=== PATIENT | male | born 1950 | race Caucasian/White ===

== ENCOUNTER 2016-09-23 10:09 | Day surgery (SDC) | payer BC ==
[~2016-09-23 10:09] MED LIST: Acetaminophen TAB* 325 MG PO PRN; Buffered Lidocaine 0.9% SYRIN* 5 ML/SYR SYRINGE INTRADERM ONE
[2016-09-23] MEDS ORDERED: fentaNYL* 50 MCG/ML 2 ML VIAL (100 MCG VIAL) ONE (10:28)
[2016-09-23] MEDS ORDERED: Midazolam* 1 MG/ML 2 ML VIAL (2 MG) ONE ×2 (10:28→11:01)
[2016-09-23 11:43] VITALS: BP 119/82
[2016-09-23] MEDS ORDERED: Cyclopentolate 1% OPTH.SOL* 2 ML BTL ONE (14:23)
[2016-09-23] MEDS ORDERED: Flurbiprofen 0.03% OPTH.SOL* 2.5 ML BTL ONE (14:23)
[2016-09-23] MEDS ORDERED: Lidocaine 1% MPF* 2 ML VIAL ONE (14:24)
[2016-09-23] MEDS ORDERED: Neomycin/Polymy/Dex OPHTH.OIN* 3.5 GM ONE (14:24)
[2016-09-23] MEDS ORDERED: Buffered Lidocaine 0.9% SYRIN* 5 ML/SYR SYRINGE ONE (14:24)
[2016-09-23] MEDS ORDERED: Tropicamide 1% OPTH.SOL* BTL ONE (14:24)
[2016-09-23] MEDS ORDERED: Tetracaine 0.5% OPTH.SOL 4 ML* 1 DROP BTL ONE (14:24)
[2016-09-23] MEDS ORDERED: Phenylephrine 2.5% OPTH.SOL* 2 ML BTL ONE (14:24)
--- NOTE | 2016-09-24 00:45 | OP ---
DATE OF OPERATION: 09/23/16 [facility] DATE OF : 48 SURGEON: Dr. Adalberto Clark. 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 ANESTHESIOLOGIST: Galdino Anthony MD ANESTHESIA: Topical with intravenous sedation. PRE-OP DIAGNOSIS: Cataract, right eye. POST-OP DIAGNOSIS: Cataract, right eye. OPERATIVE PROCEDURE: Phacoemulsification and cataract extraction with posterior chamber intraocular lens implant, right eye. COMPLICATIONS: None. BLOOD LOSS: None. DESCRIPTION OF PROCEDURE: The patient was brought to the operating room and received a small amount of intravenous sedation. A drop of Tetracaine was placed in his right eye. He was prepped and draped in the usual sterile fashion for ophthalmic surgery and attention was directed to the right eye where a speculum was placed. A paracentesis was created at the 11 o'clock position and 0.1 cc of 1 percent preservative-free Lidocaine was injected into the anterior chamber followed by DisCoVisc. The eye was digitally stabilized while a 2.75 mm keratome was used to create a triplanar clear corneal incision at the 9 o'clock position. A continuous curvilinear capsulorrhexis was created with a cystotome and Utrata forceps. BSS on a cannula was used to hydrodissect the lens from the capsule. Phacoemulsification was performed in a divide-and- conquer technique to create four fragments which were removed. Residual cortical material was removed with irrigation and aspiration. DisCoVisc was used to inflate the capsular bag and an AU00T0 20.0 diopter lens was folded and inserted into the capsular bag. DisCoVisc was removed using irrigation and aspiration. BSS on a cannula was used to hydrate the corneal stroma and seal the wound. At the end of the case the pupil was round and the lens was centered. The eye was of normal pressure and the wound was water tight. The speculum was removed and topical Maxitrol ointment was placed on the surface of the eye. The eye was closed, patched and shielded and the patient was sent to the recovery room in stable condition with post operative instructions and follow-up appointment given. [id number]/[facility] #: [id number] MTDD
== END 2016-09-23 11:22 | disposition home or self-care (01) ==
LOC: OREAST 10:09
PROVIDERS: ATTEND Ophthalmology
DX: H25.11 Age-related nuclear cataract, right eye (principal); I25.10 Atherosclerotic heart disease of native coronary artery without angina pectoris; Z95.5 Presence of coronary angioplasty implant and graft
CPT/HCPCS: A9270-GY; J2250; J3010; V2632

== ENCOUNTER 2016-11-25 09:17 | Day surgery (SDC) | payer BC ==
[2016-11-25] MEDS ORDERED: fentaNYL* 50 MCG/ML 2 ML VIAL (100 MCG VIAL) ONE (10:24)
[2016-11-25] MEDS ORDERED: Midazolam* 1 MG/ML 5 ML VIAL (5 MG) ONE (10:25)
[2016-11-25] MEDS ORDERED: Lidocaine 1% MPF* 2 ML VIAL ONE (11:15)
[2016-11-25] MEDS ORDERED: Phenylephrine 2.5% OPTH.SOL* 2 ML BTL ONE (11:15)
[2016-11-25] MEDS ORDERED: Flurbiprofen 0.03% OPTH.SOL* 2.5 ML BTL ONE (11:15)
[2016-11-25] MEDS ORDERED: Cyclopentolate 1% OPTH.SOL* 2 ML BTL ONE (11:15)
[2016-11-25] MEDS ORDERED: Buffered Lidocaine 0.9% SYRIN* 5 ML/SYR SYRINGE ONE (11:16)
[2016-11-25] MEDS ORDERED: Tropicamide 1% OPTH.SOL* BTL ONE (11:16)
[2016-11-25] MEDS ORDERED: Tetracaine 0.5% OPTH.SOL 4 ML* 1 DROP BTL ONE (11:16)
[2016-11-25] MEDS ORDERED: Neomycin/Polymy/Dex OPHTH.OIN* 3.5 GM ONE (11:16)
[2016-11-25 11:20] VITALS: BP 119/72
--- NOTE | 2016-11-26 00:38 | OP ---
DATE OF OPERATION: 11/25/16 DATE OF : 48 SURGEON: Dr. Adalberto Clark. [employer] SAL[employer] CONSULTANT: None. ANESTHESIA: Topical with intravenous sedation. PRE-OP DIAGNOSIS: Cataract, left eye. POST-OP DIAGNOSIS: Cataract, left eye. OPERATIVE PROCEDURE: Phacoemulsification and cataract extraction with posterior chamber intraocular lens implant, left eye. COMPLICATIONS: None. BLOOD LOSS: None. OPERATIVE FINDINGS: The patient was brought to the operating room and received a small amount of in travenous sedation. A drop of Tetracaine was placed in his left eye. He was prepped and draped in the usual sterile fashion for ophthalmic surgery and attention was directed to the left eye where a speculum was placed. A paracentesis was created at the 5 o'clock position and 0.1 cc of 1 percent p reservative-free Lidocaine was injected into the anterior chamber followed by DisCoVisc. The eye wa s digitally stabilized while a 2.75 mm keratome was used to create a triplanar clear corneal incisio n at the 3 o'clock position. A continuous curvilinear capsulorrhexis was created with a cystotome a nd Utrata forceps. BSS on a cannula was used to hydrodissect the lens from the capsule. Phacoemuls ification was performed in a [id number] technique to create four fragments which were remove d. Residual cortical material was removed with irrigation and aspiration. DisCoVisc was used to inf late the capsular bag and an AU00T0 22.0 diopter lens was folded and inserted into the capsular bag. DisCoVisc was removed using irrigation and aspiration. BSS on a cannula was used to hydrate the c orneal stroma and seal the wound. At the end of the case the pupil was round and the lens was cente red. The eye was of normal pressure and the wound was water tight. The speculum was removed and top ical Maxitrol ointment was placed on the surface of the eye. The eye was closed, patched and shield ed and the patient was sent to the recovery room in stable condition with post operative instruction s and follow-up appointment given. [id number]/[facility] #: [id number]
== END 2016-11-25 11:30 | disposition home or self-care (01) ==
LOC: OREAST 09:17
PROVIDERS: ATTEND Ophthalmology
DX: H25.12 Age-related nuclear cataract, left eye (principal); I25.10 Atherosclerotic heart disease of native coronary artery without angina pectoris; I25.2 Old myocardial infarction; Z95.5 Presence of coronary angioplasty implant and graft
CPT/HCPCS: A9270-GY; J2250; J3010; V2632

== ENCOUNTER 2021-10-01 15:53 | Inpatient (IN) ==
[2021-10-01 16:53] LABS: ABS Basophils 0.1 10^3/ul (0-0.2); ABS Eosinophils 0.2 10^3/ul (0-0.6); ABS Monocytes 1.2 10^3/ul (0-0.8); Eosinophil % 1.5 %; Hematocrit 39 % (42-52); Hemoglobin 13.4 g/dL (14.0-18.0); Lymphocyte % 6.7 %; Mean Corpuscular HGB Conc 34 g/dL (31-36); Mean Corpuscular Hemoglobin 31 pg (27-31); Mean Corpuscular Volume 92 fL (80-94); Mean Platelet Volume 7.6 fL (7.4-10.4); Platelet Count 211 10^3/uL (150-450); Red Blood Count 4.27 10^6 /uL (4.18-5.48); Red Cell Distribution Width 13 % (10-15); White Blood Count 14.5 10^3/uL (3.5-10.8)
[2021-10-01 17:40] LABS: Urine Appearance CLEAR; Urine Color Orange
[2021-10-01 17:41] LABS: Urine Specific Gravity 1.028 (1.002-1.030)
[2021-10-01 17:44] LABS: Albumin 4.1 g/dL (3.2-5.2); Albumin/Globulin Ratio 1.5 (1-3); C Reactive Protein 54.66 mg/L (<8.01); Calcium 9.6 mg/dL (8.6-10.3); Globulin 2.7 g/dL (2-4); Potassium 4.1 mmol/L (3.5-5.0); Total Bilirubin 0.6 mg/dL (0.2-1.0); Total Protein 6.8 g/dL (6.4-8.9); eGFR CKD-EPI 45.5 (>60)
[2021-10-01 18:05] LABS: Urine Bacteria Absent (Absent); Urine Red Blood Cell 3+(>10/hpf) (Absent); Urine White Blood Cell 3+(>20/hpf) (Absent)
[2021-10-01] MEDS ORDERED: Gadoteridol (CONTRAST) 279.3 MG/ML 10 ML IV ONE (19:13)
[2021-10-01 19:31] LABS: Magnesium 2.1 mg/dL (1.9-2.7)
[2021-10-01] MEDS ORDERED: Iodixanol (CONTRAST) 320 MG/ML 100 ML SDV IV ONE (20:13)
[2021-10-01] MEDS ORDERED: Heparin DRIP 25,000 UNITS BAG 25,000 UNITS/500 ML BAG IV SCH (20:45)
[2021-10-01] MEDS ORDERED: Heparin 5000 UNITS/ML 1 mL VIAL IV SCH (21:00)
[2021-10-01] MEDS: Heparin DRIP 25,000 UNITS BAG 25,000 UNITS/500 ML BAG IV SCH (22:40)
[2021-10-01] MEDS: fentaNYL 100 mcg/2 ml 50 MCG/ML VIAL IV SLOW PU PRN (23:20)
[2021-10-02] MEDS ORDERED: Ondansetron 4 mg VIAL 2 MG/ML 2 ml VIAL IV PRN (00:50)
[2021-10-02 04:48] LABS: Hematocrit 37 % (42-52); Hemoglobin 13.1 g/dL (14.0-18.0); Mean Corpuscular HGB Conc 35 g/dL (31-36); Mean Corpuscular Hemoglobin 32 pg (27-31); Mean Corpuscular Volume 92 fL (80-94); Mean Platelet Volume 7.7 fL (7.4-10.4); Platelet Count 198 10^3/uL (150-450); Red Blood Count 4.03 10^6 /uL (4.18-5.48); Red Cell Distribution Width 13 % (10-15); White Blood Count 14.1 10^3/uL (3.5-10.8)
[2021-10-02] MEDS: fentaNYL 100 mcg/2 ml 50 MCG/ML VIAL IV SLOW PU PRN ×4 (05:14→21:07)
[2021-10-02 05:19] LABS: Calcium 9.1 mg/dL (8.6-10.3); Magnesium 1.9 mg/dL (1.9-2.7); Potassium 4.4 mmol/L (3.5-5.0); eGFR CKD-EPI 45.5 (>60)
[2021-10-02] MEDS ORDERED: Aspirin EC 81 mg TAB.EC (enteric coated) PO SCH (09:00)
[2021-10-02] MEDS ORDERED: Morphine ORAL.SOLN 10 mg 2 mg/ml UDC 5 ml (10 mg) PO SCH (15:00)
[2021-10-02] MEDS: Heparin DRIP 25,000 UNITS BAG 25,000 UNITS/500 ML BAG IV SCH ×2 (19:00→21:45)
[2021-10-03] MEDS: fentaNYL 100 mcg/2 ml 50 MCG/ML VIAL IV SLOW PU PRN ×2 (03:29→08:36)
[2021-10-03 04:36] LABS: Hematocrit 36 % (42-52); Hemoglobin 11.9 g/dL (14.0-18.0); Mean Corpuscular HGB Conc 34 g/dL (31-36); Mean Corpuscular Hemoglobin 31 pg (27-31); Mean Corpuscular Volume 93 fL (80-94); Mean Platelet Volume 7.5 fL (7.4-10.4); Platelet Count 211 10^3/uL (150-450); Red Blood Count 3.83 10^6 /uL (4.18-5.48); Red Cell Distribution Width 13 % (10-15); White Blood Count 13.8 10^3/uL (3.5-10.8)
[2021-10-03 05:13] LABS: Calcium 8.6 mg/dL (8.6-10.3); eGFR CKD-EPI 44.2 (>60)
[2021-10-03 06:15] LABS: ABS Basophils 0.1 10^3/ul (0-0.2); ABS Eosinophils 0.3 10^3/ul (0-0.6); ABS Monocytes 1.1 10^3/ul (0-0.8); ABS Neutrophils 11.3 10^3/ul (1.5-7.7); Eosinophil % 2.1 %; Lymphocyte % 7.1 %
[2021-10-03 06:18] LABS: RBC Morphology Normal (Normal)
[2021-10-03 07:00] LABS: HDL Cholesterol 44.3 mg/dL
[2021-10-03] MEDS ORDERED: fentaNYL PATCH 12 MCG/HR 1 PATCH TRANSDERM SCH (11:00)
[2021-10-03 11:31] VITALS: BP 148/77
[2021-10-03] MEDS ORDERED: Enoxaparin 80 MG/0.8 ML SYR SUBCUT SCH ×3 (12:00→18:00)
[2021-10-03] MEDS ORDERED: fentaNYL Patch Check Q Shift NOTE FOLLOW UP SCH (19:00)
== END 2021-10-03 17:55 | disposition home or self-care (01) | DRG 686 ==
LOC: ED 15:53 → SUATTDRO 18:58 → EDHOLD 18:58 → SSU 10-02 12:11
PROVIDERS: ADMIT Internal Medicine; ATTEND Hospitalist

== ENCOUNTER 2021-10-31 22:38 | Observation (INO) ==
[2021-10-31 23:20] LABS: ABS Eosinophils 0.1 10^3/ul (0-0.6); ABS Lymphocytes 0.5 10^3/ul (1.0-4.8); ABS Monocytes 1.2 10^3/ul (0-0.8); ABS Neutrophils 13.9 10^3/ul (1.5-7.7); Eosinophil % 0.8 %; Hematocrit 32 % (42-52); Hemoglobin 10.4 g/dL (14.0-18.0); Lymphocyte % 3.4 %; Mean Corpuscular HGB Conc 33 g/dL (31-36); Mean Corpuscular Hemoglobin 30 pg (27-31); Mean Corpuscular Volume 90 fL (80-94); Mean Platelet Volume 7.6 fL (7.4-10.4); Platelet Count 139 10^3/uL (150-450); Red Blood Count 3.52 10^6 /uL (4.18-5.48); Red Cell Distribution Width 14 % (10-15); White Blood Count 15.8 10^3/uL (3.5-10.8)
[2021-11-01 00:03] LABS: Albumin 3.4 g/dL (3.2-5.2); Albumin/Globulin Ratio 1.3 (1-3); Calcium 9.1 mg/dL (8.6-10.3); Globulin 2.6 g/dL (2-4); Potassium 4.3 mmol/L (3.5-5.0); Total Bilirubin 0.7 mg/dL (0.2-1.0); eGFR CKD-EPI 89.5 (>60)
[2021-11-01] MEDS ORDERED: Iohexol 350 (CONTRAST) 500 ML MDV IV ONE (00:06)
[2021-11-01 00:45] LABS: High Sensitivity Troponin 1 Hr 1214 pg/mL (<20)
[2021-11-01 02:27] LABS: C Reactive Protein 110.15 mg/L (<8.01)
[2021-11-01] MEDS ORDERED: cefTRIAXone 1 gm/50 mL D5W 1 GM/50 ML BAG IV ONE (03:38)
[2021-11-01] MEDS ORDERED: Senna TAB 8.6 mg TAB PO PRN (03:48)
[2021-11-01] MEDS ORDERED: fentaNYL PATCH 12 MCG/HR 1 PATCH TRANSDERM SCH ×3 (04:00→17:00)
[2021-11-01 04:11] LABS: Urine Appearance Clear; Urine Bilirubin Negative (Negative); Urine Color Yellow; Urine Glucose Trace (100mg/dL) (Negative); Urine Ketones Negative (Negative); Urine Specific Gravity 1.015 (1.005-1.030)
[2021-11-01 04:12] LABS: Urine Blood 1+ (Small) (Negative); Urine Nitrite Positive (Negative); Urine Protein 2+ (100 mg/dL) (Negative); Urine Urobilinogen 0.2 (Negative) (Negative)
[2021-11-01 05:00] LABS: Urine Osmo 479 mOsm/kg (150-1150)
[2021-11-01] MEDS ORDERED: fentaNYL Patch Check Q Shift NOTE FOLLOW UP SCH (07:00)
[2021-11-01 07:23] LABS: High Sensitivity Troponin 3 Hr 3929 pg/mL (<20)
[2021-11-01] MEDS ORDERED: Aspirin EC 81 mg TAB.EC (enteric coated) PO SCH (09:00)
[2021-11-01] MEDS: fentaNYL Patch Check Q Shift NOTE FOLLOW UP SCH ×2 (10:32→17:02)
[2021-11-01 15:57] VITALS: BP 138/58
[2021-11-01] MEDS ORDERED: fentaNYL PATCH 12 MCG/HR 1 PATCH TRANSDERM ONE (17:00)
[2021-11-01] MEDS ORDERED: fentaNYL PATCH 25 MCG/HR 1 PATCH TRANSDERM SCH (17:00)
== END 2021-11-01 17:05 | disposition home or self-care (01) ==
LOC: ED 22:38 → EDHOLD 22:38 → SUATTDRO 11-01 03:33 → EDHOLD 11-01 07:30 → MEDTELE 11-01 09:33
PROVIDERS: ADMIT Internal Medicine; ATTEND Student in an Organized Health Care Education/Training Program

== ENCOUNTER 2021-11-05 02:08 | Inpatient (IN) ==
[2021-11-05 02:29] LABS: ABS Basophils 0.1 10^3/ul (0-0.2); ABS Eosinophils 0.1 10^3/ul (0-0.6); ABS Lymphocytes 0.6 10^3/ul (1.0-4.8); ABS Monocytes 1.2 10^3/ul (0-0.8); ABS Neutrophils 15.7 10^3/ul (1.5-7.7); Eosinophil % 0.6 %; Hematocrit 34 % (42-52); Hemoglobin 11.3 g/dL (14.0-18.0); Lymphocyte % 3.3 %; Mean Corpuscular HGB Conc 33 g/dL (31-36); Mean Corpuscular Hemoglobin 30 pg (27-31); Mean Corpuscular Volume 91 fL (80-94); Mean Platelet Volume 8.4 fL (7.4-10.4); Platelet Count 106 10^3/uL (150-450); Red Blood Count 3.73 10^6 /uL (4.18-5.48); Red Cell Distribution Width 14 % (10-15); White Blood Count 17.7 10^3/uL (3.5-10.8)
[2021-11-05] MEDS ORDERED: Iodixanol (CONTRAST) 320 MG/ML 100 ML SDV IV ONE (02:30)
[2021-11-05 03:06] LABS: Activated Partial Thrombo Time 27.7 seconds (26.0-38.0); INR 1.4 (0.89-1.11)
[2021-11-05 03:11] LABS: Albumin 3.4 g/dL (3.2-5.2); CO2 Carbon Dioxide 24 mmol/L (22-32); Calcium 8.6 mg/dL (8.6-10.3); Chloride 97 mmol/L (101-111); Sodium 137 mmol/L (135-145)
[2021-11-05 03:17] LABS: ALT 23 U/L (7-52); Albumin/Globulin Ratio 1.3 (1-3); Alkaline Phosphatase 96 U/L (35-149); Blood Urea Nitrogen 21 mg/dL (6-24); Cholesterol 229 mg/dL; Globulin 2.7 g/dL (2-4); Glucose 185 mg/dL (70-100); HDL Cholesterol 39.9 mg/dL; LDL Cholesterol 142 mg/dL; Total Protein 6.1 g/dL (6.4-8.9); Triglycerides 234 mg/dL; eGFR CKD-EPI 69.8 (>60)
[2021-11-05 03:19] LABS: Anion Gap 16 mmol/L (2-11)
[2021-11-05 04:12] LABS: Potassium Redraw 4.9 mmol/L (3.5-5.0)
[2021-11-05] MEDS: fentaNYL PATCH 25 MCG/HR 1 PATCH TRANSDERM SCH (11:48)
[2021-11-05] MEDS: fentaNYL Patch Check Q Shift NOTE FOLLOW UP SCH (18:48)
[2021-11-05] MEDS ORDERED: Gadoteridol (CONTRAST) 279.3 MG/ML 10 ML IV ONE (21:10)
[2021-11-06 06:05] LABS: Potassium 4.4 mmol/L (3.5-5.0)
[2021-11-06 06:06] LABS: Calcium 9.3 mg/dL (8.6-10.3); eGFR CKD-EPI 72.1 (>60)
[2021-11-06 06:10] LABS: ABS Basophils 0.1 10^3/ul (0-0.2); ABS Eosinophils 0.1 10^3/ul (0-0.6); ABS Lymphocytes 0.5 10^3/ul (1.0-4.8); ABS Monocytes 1.3 10^3/ul (0-0.8); ABS Neutrophils 14.4 10^3/ul (1.5-7.7); Eosinophil % 0.3 %; Hematocrit 31 % (42-52); Hemoglobin 10.7 g/dL (14.0-18.0); Lymphocyte % 3.2 %; Mean Corpuscular HGB Conc 34 g/dL (31-36); Mean Corpuscular Hemoglobin 31 pg (27-31); Mean Corpuscular Volume 89 fL (80-94); Red Cell Distribution Width 14 % (10-15); White Blood Count 16.5 10^3/uL (3.5-10.8)
[2021-11-06] MEDS: fentaNYL Patch Check Q Shift NOTE FOLLOW UP SCH ×2 (07:39→18:53)
[2021-11-06 08:06] LABS: Mean Platelet Volume 8.5 fL (7.4-10.4); Platelet Count 79 10^3/uL (150-450)
[2021-11-06] MEDS: Enoxaparin 80 MG/0.8 ML SYR SUBCUT SCH ×2 (15:04→21:20)
[2021-11-06 17:24] LABS: Urine Appearance Clear; Urine Bilirubin Negative (Negative); Urine Blood 3+ (Large) (Negative); Urine Color Yellow; Urine Glucose Trace (100mg/dL) (Negative); Urine Ketones Negative (Negative); Urine Nitrite Negative (Negative); Urine Protein 2+ (100 mg/dL) (Negative); Urine Specific Gravity 1.024 (1.002-1.030); Urine Urobilinogen 0.2 (Negative) (Negative); Urine pH 5.5 (5.0-9.0)
[2021-11-06 17:43] LABS: Urine Bacteria 1+ (Absent); Urine Red Blood Cell 2+(6-10/hpf) (Absent); Urine White Blood Cell 3+(>20/hpf) (Absent)
[2021-11-07 06:05] LABS: ABS Basophils 0.1 10^3/ul (0-0.2); ABS Eosinophils 0.1 10^3/ul (0-0.6); ABS Lymphocytes 0.6 10^3/ul (1.0-4.8); ABS Monocytes 1.4 10^3/ul (0-0.8); ABS Neutrophils 15.2 10^3/ul (1.5-7.7); ABS Nucleated RBC 0.1 10^3/ul; Eosinophil % 0.7 %; Hematocrit 33 % (42-52); Hemoglobin 11.1 g/dL (14.0-18.0); Lymphocyte % 3.5 %; Mean Corpuscular HGB Conc 34 g/dL (31-36); Mean Corpuscular Hemoglobin 30 pg (27-31); Mean Corpuscular Volume 89 fL (80-94); Mean Platelet Volume 8.5 fL (7.4-10.4); Nucleated Red Blood Cells % 0.4; Platelet Count 87 10^3/uL (150-450); Red Blood Count 3.73 10^6 /uL (4.18-5.48); Red Cell Distribution Width 14 % (10-15); White Blood Count 17.5 10^3/uL (3.5-10.8)
[2021-11-07] MEDS: fentaNYL Patch Check Q Shift NOTE FOLLOW UP SCH ×2 (07:01→19:18)
[2021-11-07 07:18] LABS: Calcium 9.4 mg/dL (8.6-10.3); Potassium 4.4 mmol/L (3.5-5.0); eGFR CKD-EPI 78.1 (>60)
[2021-11-07] MEDS: Enoxaparin 80 MG/0.8 ML SYR SUBCUT SCH ×2 (08:58→23:01)
[2021-11-07] MEDS: Acetaminophen IV 1 GM/100ML 1,000 MG/100 ML BAG IV PRN ×2 (17:48→23:45)
[2021-11-08] MEDS: fentaNYL Patch Check Q Shift NOTE FOLLOW UP SCH ×2 (07:26→19:27)
[2021-11-08] MEDS: Acetaminophen IV 1 GM/100ML 1,000 MG/100 ML BAG IV PRN (08:20)
[2021-11-08] MEDS: fentaNYL PATCH 25 MCG/HR 1 PATCH TRANSDERM SCH (12:32)
[2021-11-08] MEDS: Morphine ORAL CONCENTRATE 5 MG/0.25 ML ORAL.SYRIN SL PRN ×2 (14:25→20:45)
[2021-11-08] MEDS: Ondansetron 4 mg VIAL 2 MG/ML 2 ml VIAL IV PRN (14:26)
[2021-11-09 06:27] VITALS: BP 139/53
[2021-11-09] MEDS: fentaNYL Patch Check Q Shift NOTE FOLLOW UP SCH ×2 (10:24→20:13)
[2021-11-09] MEDS: Morphine ORAL CONCENTRATE 5 MG/0.25 ML ORAL.SYRIN SL PRN ×2 (13:11→20:14)
[2021-11-10] MEDS: Morphine ORAL CONCENTRATE 5 MG/0.25 ML ORAL.SYRIN SL PRN ×2 (02:04→23:28)
[2021-11-10] MEDS: fentaNYL Patch Check Q Shift NOTE FOLLOW UP SCH ×2 (07:30→19:18)
[2021-11-10] MEDS: Ondansetron 4 mg VIAL 2 MG/ML 2 ml VIAL IV PRN (17:50)
[2021-11-10] MEDS ORDERED: Ondansetron ODT 4 mg TAB 4 MG TAB SL PRN (21:49)
[2021-11-11] MEDS: fentaNYL Patch Check Q Shift NOTE FOLLOW UP SCH ×2 (07:41→19:55)
[2021-11-11] MEDS: fentaNYL PATCH 25 MCG/HR 1 PATCH TRANSDERM SCH ×2 (12:02→19:54)
[2021-11-11] MEDS ORDERED: fentaNYL PATCH 25 MCG/HR 1 PATCH TRANSDERM SCH ×2 (20:00)
[2021-11-12] MEDS: fentaNYL Patch Check Q Shift NOTE FOLLOW UP SCH ×2 (06:48→19:21)
[2021-11-13] MEDS: Morphine ORAL CONCENTRATE 5 MG/0.25 ML ORAL.SYRIN SL PRN ×3 (03:55→21:10)
[2021-11-13] MEDS: fentaNYL Patch Check Q Shift NOTE FOLLOW UP SCH ×2 (08:00→21:36)
[2021-11-13] MEDS ORDERED: Atropine 0.4 MG/ML INJ 0.4 MG/ML VIAL IV PRN (20:13)
[2021-11-13] MEDS ORDERED: Atropine 1% (ORAL/SL) 15 ML BTL SL PRN (20:27)
[2021-11-13] MEDS ORDERED: Morphine ORAL CONCENTRATE 5 MG/0.25 ML ORAL.SYRIN SL ONE (22:07)
== END 2021-11-13 23:53 | disposition expired | DRG 65 ==
LOC: EDHOLD 02:08 → ED 02:08 → SUATTDRO 04:00 → EDHOLD 07:32 → MEDTELE 08:38
PROVIDERS: ADMIT Hospitalist; ATTEND Internal Medicine